=== PATIENT | female | born 1980 | race Caucasian/White ===

== ENCOUNTER 2019-01-09 10:38 | Emergency (ER) | payer BC ==
--- NOTE | 2019-01-09 11:27 | UC ---
Throat Pain/Nasal Mode HPI - HPI Summary HPI Summary: 38-year-old female comes in with a chief complaint of runny nose and sore throat. Symptoms started 10 days ago her rhinorrhea is green. Feels like she has a postnasal drip. Has been using some Sudafed with some relief of the symptoms. Also ibuprofen helps with the pain. No chest congestion no shortness of breath. Patient does suffer from recurrent sinus infections and has had sinus surgery. - History of Current Complaint Chief Complaint: UCGeneralIllness Stated Complaint: SORE THROAT Time Seen by Provider: 01/09/19 10:56 Hx Last Menstrual Period: mirena Pain Intensity: 6 - Allergies/Home Medications Allergies/Adverse Reactions: Allergies Allergy/AdvReac Type Severity Reaction Status Date / Time aluminum Allergy Hives Verified 01/09/19 10:53 cefprozil Allergy Hives Verified 01/09/19 10:53 cephalexin [From Keflex] Allergy Hives Verified 01/09/19 10:53 ciprofloxacin [From Cipro] Allergy Hives Verified 01/09/19 10:53 clarithromycin Allergy Hives Verified 01/09/19 10:52 Penicillins Allergy serum Verified 01/09/19 10:51 sickness hives titanium Allergy Hives Verified 01/09/19 10:54 Home Medications: Home Medications Montelukast Sodium TAB* [Singulair 10 MG TAB*] 1 mg PO DAILY 01/09/19 [History Confirmed 01/09/19] Rizatriptan Benzoate [Rizatriptan] 1 tab PO DAILY 01/09/19 [History Confirmed ] PMH/Surg Hx/FS Hx/Imm Hx Previously Healthy: Yes - Surgical History Surgical History: Yes Surgery Procedure, Year, and Place: tonsils sinus - Family History Known Family History: Positive: Non-Contributory - Social History Alcohol Use: None Substance Use Type: None Smoking Status (MU): Never Smoked Tobacco Review of Systems All Other Systems Reviewed And Are Negative: Yes Constitutional: Positive: Negative Skin: Positive: Negative Eyes: Positive: Negative ENT: Positive: Sore Throat, Nasal Discharge, Sinus Congestion Respiratory: Positive: Negative Cardiovascular: Positive: Negative Gastrointestinal: Positive: Negative Motor: Positive: Negative Neurovascular: Positive: Negative Musculoskeletal: Positive: Negative Neurological: Positive: Negative Psychological: Positive: Negative Is Patient Immunocompromised?: No Physical Exam Triage Information Reviewed: Yes Appearance: No Pain Distress, Well-Nourished, Ill-Appearing - mild Vital Signs: Initial Vital Signs Temp 98.8 F 01/09/19 10:47 Pulse 110 01/09/19 10:47 Resp 18 01/09/19 10:47 BP 116/73 01/09/19 10:47 Pulse Ox 100 01/09/19 10:47 Vital Signs Reviewed: Yes Eye Exam: Normal Eyes: Positive: Conjunctiva Clear ENT: Positive: Pharyngeal erythema, Nasal congestion, Nasal drainage, TMs normal Neck: Positive: Supple Respiratory: Positive: Lungs clear, Normal breath sounds, No respiratory distress Cardiovascular: Positive: RRR Musculoskeletal Exam: Normal Musculoskeletal: Positive: Strength Intact, ROM Intact Neurological: Positive: Alert, Muscle Tone Normal Psychological: Positive: Age Appropriate Behavior Skin Exam: Normal Throat Pain/Nasal Course/Dx - Course Course Of Treatment: Patient tells me that the antibiotic that works for her sinusitis is Levaquin which she gets and liquid. She reports she is unable to swallow pills that she does not remember pills ever being crushed and eating them that way. I was unable to find Levaquin the liquid for prescription. Prescribing doxycycline and a liquid. Also told her stop Sudafed and use saline nasal spray. Patient reports she uses Flonase and she gets a bloody nose sore not doing that. Follow -up with primary care doctor and/or ENT reevaluate sooner if worse any questions or concerns. If the pharmacy does not have liquid doxycycline or liquid Levaquin my plan would be to treat her with with liquid clindamycin. - Differential Dx/Diagnosis Provider Diagnosis: Sinusitis Discharge - Sign-Out/Discharge Documenting (check all that apply): Patient Departure All imaging exams completed and their final reports reviewed: No Studies - Discharge Plan Condition: Stable Disposition: HOME Prescriptions: Doxycycline Monohydrate 100 mg PO BID #400 ml Patient Education Materials: Sinusitis (ED) Referrals: Rafael Martinez [Primary Care Provider] - Additional Instructions: FOLLOW UP WITH YOUR DOCTOR IF NOT COMPLETELY IMPROVED. GET RECHECKED SOONER IF YOUR CONDITION WORSENS OR ANY QUESTIONS OR CONCERNS. - Billing Disposition and Condition Condition: STABLE Disposition: Home
== END 2019-01-09 11:40 | disposition home or self-care (01) ==
LOC: UCEAST 10:38
DX: J32.9 Chronic sinusitis, unspecified (principal); Z88.0 Allergy status to penicillin
CPT/HCPCS: 99202; G0463